=== PATIENT | male | born 1985 | race Caucasian/White ===

== ENCOUNTER 2016-06-08 23:22 | Emergency (ER) | payer OTHER ==
[2016-06-08 23:57] LABS: HEMOGLOBIN 14.4 gm/dl (14.0-17.5); RED BLOOD COUNT 4.57 M/UL (4.20-5.50); WHITE BLOOD COUNT 19.3 K/UL (4.5-11.0)
[2016-06-09 00:20] LABS: BUN/CREATININE RATIO 19 (0-10)
== END 2016-06-09 05:53 ==
LOC: ER1 23:22
PROVIDERS: Family Medicine
DX: F15.10 Other stimulant abuse, uncomplicated (principal); F11.10 Opioid abuse, uncomplicated; S00.12XA Contusion of left eyelid and periocular area, initial encounter; N39.0 Urinary tract infection, site not specified; D72.829 Elevated white blood cell count, unspecified
CPT/HCPCS: 36415; 70450; 71010; 80053; 80307; 81001; 85025; 87086; 96360; 99283; G0480